=== PATIENT | female | born 1995 | race Caucasian/White ===

== ENCOUNTER 2018-03-22 19:06 | Emergency (ER) | payer MEDICAID, SELFPAY ==
[2018-03-22 19:07] VITALS: BP 102/76; PULSE 123; RESP 18; TEMP 37.1; O2SAT 98; BMI 21.1
[2018-03-22 19:26] LABS: Mucous, Urine 0 SEEN /hpf (<or=2+); Red Blood Cells-Urine 0 SEEN /hpf (0-5)
[2018-03-22 19:53] LABS: Color, Urine Yellow (Yellow); Glucose, Dipstick Normal (Normal); Ketone-Dipstick Negative (Negative); Leukocyte Esterase-Dipstick Negative /ul (Negative); Nitrite-Dipstick Negative (Negative); Occult Blood-Urine 50 /ul (Negative); Protein-Dipstick Negative (Negative); Urine Bilirubin Dipstick Negative (Negative); Urine Clarity Sl. Cloudy (Clear); Urine Urobilinogen Normal (Normal)
[2018-03-22 20:11] LABS: Bacteria 1+ /hpf (None Seen); Squamous Epithelial Cells - UA 0-5 SEEN /hpf (5-10); White Blood Cells 0-5 SEEN /hpf (0-5)
--- NOTE | 2018-03-22 20:34 | ED.DCSUM_ITS ---
- ER Visit Summary Date of Service: 03/22/18 Chief Complaint: Odor and frequency History of Present Illness: The patient is a 22 F who presents with concern for urinary tract infection. States her urine had odor and she had frequency. She complains of discomfort in suprapubic area. Denies low back pain or flank pain. Denies fever, chills or night sweats. Denies nausea or vomiting. She states her last eye tract infection was 1 year ago. She denies vaginal discharge. She is presently on her menses. Physical Examination: Vital signs noted and remarkable heart rate 123 otherwise unremarkable. HEENT exam is unremarkable. Lungs are clear auscultation. Heart is regular. Abdomen is markable for intensity of her pubic area. Is no CVA tenderness noted. Test Results: UA reveals blood and 0-5 WBCs no RBCs and 1+ bacteria. This is not classic for urinary tract infection but in light of her symptoms and frequency will treat with 3-day course of Macrobid. Emergency Department Course and Treatment: Assess UA. Treat for cystitis with Macrobid and Pyridium for 3 days Treatment Plan: Macrobid and Pyridium Disposition: Discharge to home Impression: Acute cystitis nonhemorrhagic This note was generated with [employer] dictation software. It may contain incorrect words, spelling, and punctuation that were not noted in review of the chart jill or to signing ED Disposition - Plan for ED Patient: Disposition: Home or Assisted Living Chief Complaint: Complaint Instructions: ED UTI Cystitis Female Prescriptions: Nitrofurantoin Macrocrystals [Macrobid] 100 mg PO Q12 #10 capsule Phenazopyridine HCl [Pyridium] 200 mg PO TID #10 tablet Referrals: Butch Philip MD [Primary Care Provider] - 3-5 Days if not improving
[2018-03-22 20:38] VITALS: RESP 18
== END 2018-03-22 20:40 | disposition home or self-care (01) ==
PROVIDERS: Emergency Provider Emergency Medicine; Family Provider Family Medicine; PCP Family Medicine
DX: N30.00 Acute cystitis without hematuria (principal); Z72.0 Tobacco use; Z79.899 Other long term (current) drug therapy; Z87.440 Personal history of urinary (tract) infections
CPT/HCPCS: 81001; 99282

== ENCOUNTER 2018-03-30 23:27 | Emergency (ER) | payer MEDICAID, SELFPAY ==
[2018-03-30 23:29] VITALS: BP 121/85; PULSE 112; RESP 16; TEMP 37.2; O2SAT 98; BMI 21.1
--- NOTE | 2018-03-30 23:43 | ED.DCSUM_ITS ---
- ER Visit Summary Date of Service: 03/30/18 Chief Complaint: Fentanyl overdose History of Present Illness: The patient is a 22 F who presents for opiate overdose. Patient states she snorted a line of fentanyl. She was found unresponsive and not breathing. EMS assisted ventilations and gave her one half a milligram of Narcan. She had full return to consciousness and spontaneous breathing. Patient states she has injected in the past but denies it recently. She is denying any chest pain, shortness of breath, or other complaints at this time other than some nausea. Patient is not interested at this time in detox resources. She has used meth as well. Denies any medical problems. Physical Examination: Vital signs: afebrile, hemodynamically stable, no hypoxia on room air General: well nourished, well developed, in no distress Skin: warm, dry, no rash, pale HEENT: normocephalic and atraumatic; PERRL, EOMI, moist mucous membranes Cardiovascular: Tachycardic rate and rhythm without murmurs, no peripheral edema, 2+ pulses all distal extremities Respiratory: No increased work of breathing, lungs are clear to auscultation bilaterally, no rales, rhonchi or wheezing Abdominal: Abdomen is soft, nontender with normoactive bowel sounds, no guarding or rebound, no masses MSK: Moves all extremities, no deformities, normal strength Neuro: Awake and alert, oriented ?4. No facial droop, sensation and motor function intact and symmetric Test Results: [] Emergency Department Course and Treatment: Patient was observed for greater than 1 hour and had no shortness of breath, cough or other concerning symptoms that would be a concern for flash pulmonary edema. Patient had no respiratory depression or altered mental status that would be concerning for relapse of her opiate overdose. Patient had been offered and declined resources for substance abuse detox. Patient was discharged home well-appearing with a ride. Treatment Plan: [] Disposition: [] Impression: Opiate overdose This note was generated with [employer] dictation software. It may contain incorrect words, spelling, and punctuation that were not noted in review of the chart jill or to signing ED Disposition - Plan for ED Patient: Chief Complaint: Overdose Referrals: Butch Philip MD [Primary Care Provider] -
[2018-03-31 00:27] VITALS: BP 108/79; PULSE 110; RESP 20; O2SAT 100
--- NOTE | 2018-03-31 00:27 | ED.DEP ---
ED Disposition - Plan for ED Patient: Disposition: Home or Assisted Living Chief Complaint: Overdose Instructions: ED Overdose Opiate Referrals: Butch Philip MD [Primary Care Provider] - 1-2 Days if not improving Additional Instructions: Please seek help for substance use, as next time you overdose you could . Do not do drugs. If you have any worsening of your condition or any new concerning symptoms, please return immediately to the emergency department for another evaluation.
[2018-03-31 00:37] VITALS: BP 125/85; PULSE 113; RESP 20; O2SAT 100
--- OUTSIDE RECORDS SUMMARY | 2018-05-16 23:07 | XMS RPT_ITS ---
:1995 Author Organization [facility] Care Team Providers Name Role Phone LU PHILIP) Attending Unavailable LU PHILIP) Attending Unavailable LU PHILIP) Referring Unavailable LU PHILIP) Attending Unavailable Butch Philip Primary Care Unavailable Chana Borden Attending Unavailable Davi Horn Attending Unavailable Butch Philip Primary Care Unavailable PROBLEMS PROBLEMS DATE TYPE CONDITION / CODE ATTENDING STATUS SOURCE 06/04/2017 Active Anxiety disorder, NA Active [place] unspecified / [facility] F41.9(ICD-10) [place] Repository 12/29/2017 Active Other psychoactive NA Active [place] substance use, [facility] unspecified, [place] uncomplicated / Repository F19.90(ICD-10) 12/29/2017 Active Major depressive NA Active [place] disorder, recurrent [facility] severe without [place] psychotic features Repository / F33.2(ICD-10) 12/29/2017 Active Personal history of NA Active [place] other specified [facility] conditions / [place] Z87.898(ICD-10) Repository 06/04/2017 Active Unknown / Elvia PHILIP UNK(Unknown) [facility] () [place] Repository PROCEDURES PROCEDURES No Procedure Records FoundRESULTS RESULTS EMERGENCY DEPARTMENT Observed: 03/31/2018 Status: F Source: [place] SUMMARY 12:36 AM [facility] REPOSITORY [facility] Medical Records Department [address] [place] [address] Emergency Department Summary 03/30/18 2342 MR#: [id number] Acct: [id number] Name: ABI ALANIS Rep #: [id number] : 1995 22 From: Chana Borden MD PCP: Butch Philip MD Status: REG ER - ER Visit Summary Date of Service: 03/30/18 Chief Complaint: Fentanyl overdose History of Present Illness: The patient is a 22 F who presents for opiate overdose. Patient states she snorted a line of fentanyl. She was found unresponsive and not breathing. EMS assisted ventilations and gave her one half a milligram of Narcan. She had full return to consciousness and spontaneous breathing. Patient states she has injected in the past but denies it recently. She is denying any chest pain, shortness of breath, or other complaints at this time other than some nausea. Patient is not interested at this time in detox resources. She has used meth as well. Denies any medical problems. Physical Examination: Vital signs: afebrile, hemodynamically stable, no hypoxia on room air General: well nourished, well developed, in no distress Skin: warm, dry, no rash, pale HEENT: normocephalic and atraumatic; PERRL, EOMI, moist mucous membranes Cardiovascular: Tachycardic rate and rhythm without murmurs, no peripheral edema, 2+ pulses all distal extremities Respiratory: No increased work of breathing, lungs are clear to auscultation bilaterally, no rales, rhonchi or wheezing Abdominal: Abdomen is soft, nontender with normoactive bowel sounds, no guarding or rebound, no masses MSK: Moves all extremities, no deformities, normal strength Neuro: Awake and alert, oriented 4. No facial droop, sensation and motor function intact and symmetric Test Results: [] Emergency Department Course and Treatment: Patient was observed for greater than 1 hour and had no shortness of breath, cough or other concerning symptoms that would be a concern for flash pulmonary edema. Patient had no respiratory depression or altered mental status that would be concerning for relapse of her opiate overdose. Patient had been offered and declined resources for substance abuse detox. Patient was discharged home well- appearing with a ride. Treatment Plan: [] Disposition: [] Impression: Opiate overdose This note was generated with [employer] dictation software. It may contain incorrect words, spelling, and punctuation that were not noted in review of the chart prior to signing ED Disposition - Plan for ED Patient: Chief Complaint: Overdose Referrals: Butch Philip MD [Primary Care Provider] - What to do if you have Problems For any increased pain, shortness of breath, bleeding, nausea or vomiting, chest pain, or any unexpected problems, contact your Primary Care Provider. Call [facility] ([phone]) or report to the closest Emergency Room. Call 911 if necessary. 03/31/1835 <Electronically signed by Chana Borden MD> Date Chana Borden MD Cosigner Signature (If Indicated): Date CC: Butch Philip MD DISCHARGE INSTRUCTION Observed: 03/31/2018 Status: F Source: [place] 12:31 AM [facility] REPOSITORY [facility] Medical Records Department [address] [place] [address] Discharge Instruction 03/31/1826 MR#: [id number] Acct: [id number] Name: ABI ALANIS Rep #: [id number] : 1995 22 From: Chana Borden MD PCP: Butch Philip MD Status: REG ER ED Disposition - Plan for ED Patient: Disposition: Home or Assisted Living Chief Complaint: Overdose Instructions: ED Overdose Opiate Referrals: Butch Philip MD [Primary Care Provider] - 1-2 Days if not improving Additional Instructions: Please seek help for substance use, as next time you overdose you could . Do not do drugs. If you have any worsening of your condition or any new concerning symptoms, please return immediately to the emergency department for another evaluation. What to do if you have Problems For any increased pain, shortness of breath, bleeding, nausea or vomiting, chest pain, or any unexpected problems, contact your Primary Care Provider. Call [facility] ([phone]) or report to the closest Emergency Room. Call 911 if necessary. 03/31/1830 <Electronically signed by Chana Borden MD> Date Chana Borden MD Cosigner Signature (If Indicated): Date CC: Butch Philip MD EMERGENCY DEPARTMENT Observed: 03/22/2018 Status: F Source: [place] SUMMARY 8:34 PM [facility] REPOSITORY [facility] Medical Records Department [address] [place] [address] Emergency Department Summary 03/22/182030 MR#: [id number] Acct: [id number] Name: ABI ALANIS Rep #: [id number] : 1995 22 From: Davi Horn MD PCP: Butch Philip MD Status: REG ER - ER Visit Summary Date of Service: 03/22/18 Chief Complaint: Odor and frequency History of Present Illness: The patient is a 22 F who presents with concern for urinary tract infection. States her urine had odor and she had frequency. She complains of discomfort in suprapubic area. Denies low back pain or flank pain. Denies fever, chills or night sweats. Denies nausea or vomiting. She states her last eye tract infection was 1 year ago. She denies vaginal discharge. She is presently on her menses. Physical Examination: Vital signs noted and remarkable heart rate 123 otherwise unremarkable. HEENT exam is unremarkable. Lungs are clear auscultation. Heart is regular. Abdomen is markable for intensity of her pubic area. Is no CVA tenderness noted. Test Results: UA reveals blood and 0-5 WBCs no RBCs and 1+ bacteria. This is not classic for urinary tract infection but in light of her symptoms and frequency will treat with 3-day course of Macrobid. Emergency Department Course and Treatment: Assess UA. Treat for cystitis with Macrobid and Pyridium for 3 days Treatment Plan: Macrobid and Pyridium Disposition: Discharge to home Impression: Acute cystitis nonhemorrhagic This note was generated with [employer] dictation software. It may contain incorrect words, spelling, and punctuation that were not noted in review of the chart prior to signing ED Disposition - Plan for ED Patient: Disposition: Home or Assisted Living Chief Complaint: Complaint Instructions: ED UTI Cystitis Female Prescriptions: Nitrofurantoin Macrocrystals [Macrobid] 100 mg PO Q12 #10 capsule Phenazopyridine HCl [Pyridium] 200 mg PO TID #10 tablet Referrals: Butch Philip MD [Primary Care Provider] - 3-5 Days if not improving What to do if you have Problems For any increased pain, shortness of breath, bleeding, nausea or vomiting, chest pain, or any unexpected problems, contact your Primary Care Provider. Call [facility] ([phone]) or report to the closest Emergency Room. Call 911 if necessary. 03/22/182033 <Electronically signed by Davi Horn MD> Date Davi Horn MD Cosigner Signature (If Indicated): Date CC: Butch Philip MD URINALYSIS, COMPLETE Collected: 03/22/2018 Status: F Source: LOU 7:15 PM [facility] REPOSITORY Order Comment: How was Urine Obtained? DIRECTOR OF THERAPY SERVICES TO SPECIFY TYPE CODE TESTS RESULT OUT OF RANGE REFERENCE UNITS LAB L400.3000 Yellow COLOR Normal Yellow LAB L400.3050 Clear Normal CLARITY Sl. Cloudy LAB L400.3200 Normal mg/dl Normal GLUCOSE, UR Normal LAB L400.3300 Negative mg/dL Normal BILIRUBIN URINE Negative LAB L400.3400 Negative mg/dl Normal KETONE UR Negative LAB L400.3465 1.002-1.030 Normal SP.GR. DIPSTX 1.010 LAB L400.3550 5.0 - 8.0 pH UR Normal 7.0 LAB L400.3600 Negative mg/dl PROT Normal DIPSTX Negative LAB L400.3700 Normal mg/dl Normal UROBILI Normal LAB L400.3750 Negative Normal NITRITE UR Negative LAB L400.3780 Negative /ul High 50 OCCULT BLOOD-UR LAB L400.3800 Negative /ul LEUK Normal ESTERASE Negative LAB L400.4050 0-5 /hpf WBC Normal 0-5 SEEN LAB L400.4100 0-5 /hpf 0 Normal RBC-UA SEEN LAB L400.4150 5-10 /hpf SQUAM Normal EPI 0-5 SEEN LAB L400.4300 None Seen /hpf 1+ Normal BACTERIA LAB L400.4350 <or=2+ /hpf 0 Normal MUCUS, URINE SEEN Performed By: #### L400.0001 #### [facility] Laboratory [address] [place], [place], [id number] PROGRESS Observed: 02/03/2018 Status: COMPLETED Source: [place] 11:53 AM [facility] REPOSITORY HNO ID: [id number] Author: Lu España) [place] Service: (none) Author Type: Physician Type: Progress Notes Filed: 02/03/2018 1:07 PM Note Text: Chief Complaint Patient presents with: 6 week follow up: asking for rx for ibuprofen for teeth - staying at [facility] Abi Alanis is a 22 year old female who presents here today for Above Complaints. Patient taking Celexa and Buspar as prescribed and feels that both anxiety and depression. Denies suicidal ideations or panic attacks. Denies side effects. Does not require refills today. Would like to remain on same dosage. Still living at [facility] for recovery from heroin use. Doing well. Attending group therapy sessions. Has not used in the last 62 days. Has appointment tomorrow with Dr. Calderon to discuss Vivitrol shots. 30 days left at [facility]. Still smoking 1/2 pack per day and was unable to afford the patches OTC. Requesting rx for chantix instead, has not tried before. Requesting ibuprofen for chronic tooth pain 2/2 gingivitis and dental caries. Had right side of her mouth filled at dentist appointment before she went back to half-way. Has appointment with dentist next month. Needs rx because she cannot get medications OTC while in [facility]. Past medical history, appointments, medications, allergies reviewed. Previous Medical History PAST MEDICAL HISTORY Diagnosis Date - Anxiety - Chlamydia 2013 - depression - Heroin abuse (HCC) IV history, last use was March of 2017, seeing Dr. Calderon for suboxone - Rh negative status during 07/05/2014 - Tobacco use Previous Surgical History PAST SURGICAL HISTORY Procedure Laterality Date - [facility] (MISSED AB 1ST TRIMESTER) 04/27/12 missed ab at 12 weeks. baby measuring 8 weeks Family History FAMILY HISTORY Problem Relation Age of Onset - Breast Cancer Mother 46 - other (depression) Mother - Breast Cancer Maternal Grandmother Patient Allergies ALLERGIES No Known Allergies Current Medications Current Outpatient Prescriptions on File Prior to Visit: citalopram hydrobromide (CELEXA) 10 mg tablet Take 1 tablet by mouth once daily. busPIRone (BUSPAR) 10 mg tablet Take 1 tablet by mouth three times daily. levonorgestrel (MIRENA) 20 mcg/24 hr (5 years) IUD 1 Each by INTRAUTERINE route as directed. nicotine (NICODERM) 14 mg/24 hr Apply 1 Patch as directed every 24 hours. No smoking with patch. (Patient not taking: Reported on 02/03/2018 ) nicotine (NICODERM) 7 mg/24 hr Apply 1 Patch as directed every 24 hours. (Patient not taking: Reported on 02/03/2018 ) No current facility-administered medications on file prior to visit. Social History Social History Marital status: Single Spouse name: Years of education: 11 Number of children: Occupational History Occupation Employer Comment unemployed Social History Main Topics Smoking status: Current Every Day Smoker Packs/day: 0.50 Years: 4.00 Types: Cigarettes Smokeless tobacco: Never Used Alcohol use: No Drug use: Yes Comment: heroin abuse in past Sexual activity: Not Currently Partners with: Male control/protection: IUD Review of Symptoms REVIEW OF SYSTEMS GENERAL: No weight loss, malaise or fevers RESPIRATORY: Negative for cough, hemoptysis, wheezing, COPD, dyspnea or shortness of breath CARDIOVASCULAR: Negative for chest pain, leg swelling, hypertension, CHF or palpitations GI: No nausea, vomiting, or diarrhea SKIN: Negative for lesions, rash, and itching EXAM: BP 110/78 Pulse 100 Resp 12 Wt 56.7 kg (125 lb) BMI 23.24 kg/m? General Appearance: Well appearing, alert, in no acute distress, well-hydrated, well nourished.. Skin: Skin color, texture, turgor normal, no suspicious rashes or lesions. Oropharynx: Positive findings: gingivitis, dental caries. Lungs: Lungs clear to auscultation. No wheezing, rhonchi, rales. Heart: RRR without murmur, gallop, or rubs. No ectopy. Abdomen: Normal abdominal exam, Abdomen soft, non-tender. Bowel sounds normal. No masses, organomegaly. Extremities: No deformities, edema, skin discoloration, clubbing or cyanosis. Good capillary refill. . Health Maintenance List HPV VACCINE(2 - Female 3-dose series) due on 07/30/2017 PAP EVERY 3 YEARS (21-30 YEAR OLDS) due on 11/24/2018 DTAP,TDAP,TD(2 - Td) due on 01/29/2026 ONE PNEUMOVAX PRIOR TO AGE 65 Completed INFLUENZA Completed Data reviewed Component Latest Ref Rng AND Units 12/29/2017 Protein, Total 6.3 - 8.0 g/dL 8.2 (H) Albumin 3.9 - 4.9 g/dL 5.0 (H) Calcium 8.5 - 10.2 mg/dL 10.0 Bilirubin, Total 0.2 - 1.3 mg/dL 0.3 Alkaline Phosphatase 32 - 117 U/L 82 AST 13 - 35 U/L 25 Glucose 74 - 99 mg/dL 81 BUN 7 - 21 mg/dL 16 Creatinine 0.58 - 0.96 mg/dL 0.62 Sodium 136 - 144 mmol/L 142 Potassium 3.7 - 5.1 mmol/L 4.6 Chloride 97 - 105 mmol/L 106 (H) CO2 22 - 30 mmol/L 20 (L) Anion Gap 9 - 18 mmol/L 16 ALT 7 - 38 U/L 23 eGFR- >60 eGFR-All Other Races . >60 WBC 3.70 - 11.00 k/uL 11.14 (H) RBC 3.90 - 5.20 m/uL 4.90 Hemoglobin 11.5 - 15.5 g/dL 15.9 (H) Hematocrit 36.0 - 46.0 % 46.1 (H) MCV 80.0 - 100.0 fL 94.1 MCH 26.0 - 34.0 pG 32.4 MCHC 30.5 - 36.0 g/dL 34.5 RDW-CV 11.5 - 15.0 % 11.9 Platelet Count 150 - 400 k/uL 256 MPV 9.0 - 12.7 fL 12.5 Absolute nRBC <0.01 k/uL <0.01 Phencyclidine Negative Negative Benzodiazepines Urine Negative Negative Cocaine Urine Negative Negative Amphetamines Negative Negative Cannabinoids, Urine Negative Negative Opiates Negative Negative Barbiturates Negative Negative Ethanol, Urine <11 mg/dL <11 Oxycodone, Urine Negative Negative Hep B Core Ab, Total Negative Negative Hep C Antibody IA Negative Negative Hep B Surface Ag Negative Negative Hep B Surface Ab, Qual Negative Negative HIV 12 Combo (Ag/Ab) Non Reactive Non Reactive TSH 0.400 - 5.500 uU/mL 0.899 ASSESSMENT/PLAN: 1. Anxiety - ICD9: 300.00, ICD10: F41.9 (primary diagnosis) Improved on buspar and Celexa. Continue current regimen. Recheck in 3 months. 2. depression - ICD9: 300.9, ICD10: F99 Controlled on Celexa. 3. Heroin abuse (HCC) - ICD9: 305.50, ICD10: F11.10 Sober for 62 days. Continue with [facility] and [facility]. Recheck in 3 months. 4. Tobacco use - ICD9: 305.1, ICD10: Z72.0 - Cessation encouraged. - Physiologic and physical aspects of tobacco addiction as well as strategies for quitting were discussed. - Counseling was given focusing on the harmful effects of this addiction especially given the patient's medical condition(s) which will be worsened because of the chemicals in tobacco. - Prescription for Chantix given - VARENICLINE 0.5 MG (11)-1 MG (42) TABLETS IN A DOSE PACK - VARENICLINE 1 MG TABLET 5. Tooth pain - ICD9: 525.9, ICD10: K08.89 Ibuprofen PRN. Keep appointment with dentist as scheduled. - IBUPROFEN 200 MG TABLET 6. Poor dentition - ICD9: 525.9, ICD10: K08.9 See above. - IBUPROFEN 200 MG TABLET Lu Philip MD CNOV Observed: 02/03/2018 Status: COMPLETED Source: [place] 11:40 AM [facility] RE[facility] ABI ALANIS ([id number]) 1995 F CPA Date Time Provider Department 02/03/18 11:40 AM LU PHILIP) [facility] During your visit today, we recorded the following information about you: Pulse Respiration Blood pressure Weight 100/minute 12/minute 110/78 56.7 kg Lu Philip MD 02/03/2018 1:07 PM Signed Chief Complaint Patient presents with: 6 week follow up: asking for rx for ibuprofen for teeth - staying at [facility] Abi Alanis is a 22 year old female who presents here today for Above Complaints. Patient taking Celexa and Buspar as prescribed and feels that both anxiety and depression. Denies suicidal ideations or panic attacks. Denies side effects. Does not require refills today. Would like to remain on same dosage. Still living at [facility] for recovery from heroin use. Doing well. Attending group therapy sessions. Has not used in the last 62 days. Has appointment tomorrow with Dr. Calderon to discuss Vivitrol shots. 30 days left at [facility]. Still smoking 1/2 pack per day and was unable to afford the patches OTC. Requesting rx for chantix instead, has not tried before. Requesting ibuprofen for chronic tooth pain 2/2 gingivitis and dental caries. Had right side of her mouth filled at dentist appointment before she went back to [facility]way. Has appointment with dentist next month. Needs rx because she cannot get medications OTC while in [facility]. Past medical history, appointments, medications, allergies reviewed. Previous Medical History PAST MEDICAL HISTORY Diagnosis Date - Anxiety - Chlamydia 2013 - depression - Heroin abuse (HCC) IV history, last use was March of 2017, seeing Dr. Calderon for suboxone - Rh negative status during 07/05/2014 - Tobacco use Previous Surgical History PAST SURGICAL HISTORY Procedure Laterality Date - [facility] (MISSED AB 1ST TRIMESTER) 04/27/12 missed ab at 12 weeks. baby measuring 8 weeks Family History FAMILY HISTORY Problem Relation Age of Onset - Breast Cancer Mother 46 - other (depression) Mother - Breast Cancer Maternal Grandmother Patient Allergies ALLERGIES No Known Allergies Current Medications Current Outpatient Prescriptions on File Prior to Visit: citalopram hydrobromide (CELEXA) 10 mg tablet Take 1 tablet by mouth once daily. busPIRone (BUSPAR) 10 mg tablet Take 1 tablet by mouth three times daily. levonorgestrel (MIRENA) 20 mcg/24 hr (5 years) IUD 1 Each by INTRAUTERINE route as directed. nicotine (NICODERM) 14 mg/24 hr Apply 1 Patch as directed every 24 hours. No smoking with patch. (Patient not taking: Reported on 02/03/2018 ) nicotine (NICODERM) 7 mg/24 hr Apply 1 Patch as directed every 24 hours. (Patient not taking: Reported on 02/03/2018 ) No current facility-administered medications on file prior to visit. Social History Social History Marital status: Single Spouse name: Years of education: 11 Number of children: Occupational History Occupation Employer Comment unemployed Social History Main Topics Smoking status: Current Every Day Smoker Packs/day: 0.50 Years: 4.00 Types: Cigarettes Smokeless tobacco: Never Used Alcohol use: No Drug use: Yes Comment: heroin abuse in past Sexual activity: Not Currently Partners with: Male control/protection: IUD Review of Symptoms REVIEW OF SYSTEMS GENERAL: No weight loss, malaise or fevers RESPIRATORY: Negative for cough, hemoptysis, wheezing, COPD, dyspnea or shortness of breath CARDIOVASCULAR: Negative for chest pain, leg swelling, hypertension, CHF or palpitations GI: No nausea, vomiting, or diarrhea SKIN: Negative for lesions, rash, and itching EXAM: BP 110/78 Pulse 100 Resp 12 Wt 56.7 kg (125 lb) BMI 23.24 kg/m? General Appearance: Well appearing, alert, in no acute distress, well-hydrated, well nourished.. Skin: Skin color, texture, turgor normal, no suspicious rashes or lesions. Oropharynx: Positive findings: gingivitis, dental caries. Lungs: Lungs clear to auscultation. No wheezing, rhonchi, rales. Heart: RRR without murmur, gallop, or rubs. No ectopy. Abdomen: Normal abdominal exam, Abdomen soft, non-tender. Bowel sounds normal. No masses, organomegaly. Extremities: No deformities, edema, skin discoloration, clubbing or cyanosis. Good capillary refill. . Health Maintenance List HPV VACCINE(2 - Female 3-dose series) due on 07/30/2017 PAP EVERY 3 YEARS (21-30 YEAR OLDS) due on 11/24/2018 DTAP,TDAP,TD(2 - Td) due on 01/29/2026 ONE PNEUMOVAX PRIOR TO AGE 65 Completed INFLUENZA Completed Data reviewed Component Latest Ref Rng AND Units 12/29/2017 Protein, Total 6.3 - 8.0 g/dL 8.2 (H) Albumin 3.9 - 4.9 g/dL 5.0 (H) Calcium 8.5 - 10.2 mg/dL 10.0 Bilirubin, Total 0.2 - 1.3 mg/dL 0.3 Alkaline Phosphatase 32 - 117 U/L 82 AST 13 - 35 U/L 25 Glucose 74 - 99 mg/dL 81 BUN 7 - 21 mg/dL 16 Creatinine 0.58 - 0.96 mg/dL 0.62 Sodium 136 - 144 mmol/L 142 Potassium 3.7 - 5.1 mmol/L 4.6 Chloride 97 - 105 mmol/L 106 (H) CO2 22 - 30 mmol/L 20 (L) Anion Gap 9 - 18 mmol/L 16 ALT 7 - 38 U/L 23 eGFR- >60 eGFR-All Other Races . >60 WBC 3.70 - 11.00 k/uL 11.14 (H) RBC 3.90 - 5.20 m/uL 4.90 Hemoglobin 11.5 - 15.5 g/dL 15.9 (H) Hematocrit 36.0 - 46.0 % 46.1 (H) MCV 80.0 - 100.0 fL 94.1 MCH 26.0 - 34.0 pG 32.4 MCHC 30.5 - 36.0 g/dL 34.5 RDW-CV 11.5 - 15.0 % 11.9 Platelet Count 150 - 400 k/uL 256 MPV 9.0 - 12.7 fL 12.5 Absolute nRBC <0.01 k/uL <0.01 Phencyclidine Negative Negative Benzodiazepines Urine Negative Negative Cocaine Urine Negative Negative Amphetamines Negative Negative Cannabinoids, Urine Negative Negative Opiates Negative Negative Barbiturates Negative Negative Ethanol, Urine <11 mg/dL <11 Oxycodone, Urine Negative Negative Hep B Core Ab, Total Negative Negative Hep C Antibody IA Negative Negative Hep B Surface Ag Negative Negative Hep B Surface Ab, Qual Negative Negative HIV 12 Combo (Ag/Ab) Non Reactive Non Reactive TSH 0.400 - 5.500 uU/mL 0.899 ASSESSMENT/PLAN: 1. Anxiety - ICD9: 300.00, ICD10: F41.9 (primary diagnosis) Improved on buspar and Celexa. Continue current regimen. Recheck in 3 months. 2. depression - ICD9: 300.9, ICD10: F99 Controlled on Celexa. 3. Heroin abuse (HCC) - ICD9: 305.50, ICD10: F11.10 Sober for 62 days. Continue with [facility] and [facility]. Recheck in 3 months. 4. Tobacco use - ICD9: 305.1, ICD10: Z72.0 - Cessation encouraged. - Physiologic and physical aspects of tobacco addiction as well as strategies for quitting were discussed. - Counseling was given focusing on the harmful effects of this addiction especially given the patient's medical condition(s) which will be worsened because of the chemicals in tobacco. - Prescription for Chantix given - VARENICLINE 0.5 MG (11)-1 MG (42) TABLETS IN A DOSE PACK - VARENICLINE 1 MG TABLET 5. Tooth pain - ICD9: 525.9, ICD10: K08.89 Ibuprofen PRN. Keep appointment with dentist as scheduled. - IBUPROFEN 200 MG TABLET 6. Poor dentition - ICD9: 525.9, ICD10: K08.9 See above. - IBUPROFEN 200 MG TABLET Lu Philip MD Referring Provider: SELF [200] Allergies As of Date: 02/03/2018 (No Known Allergies) Date Reviewed: 02/03/2018 Reviewed by: Rajiv Correa Ma - Fully Assessed Reason for Visit: 6 week follow up [Other] Cmt: asking for rx for ibuprofen for teeth - staying at [facility] Primary Visit Diagnosis:Anxiety [F41.9] Other Visit Diagnoses:depression [F99] Heroin abuse (HCC) [F11.10] Tobacco use [Z72.0] Tooth pain [K08.89] Poor dentition [K08.9] Order(s):ibuprofen (MOTRIN) 200 mg tabletTake 1-2 tablets by mouth every 6 hours as needed for Pain (Take with food.).Disp: 60 tabletRfl: 1 varenicline (CHANTIX STARTING MONTH BOX) 0.5 mg (11)- 1 mg (42) tabletTake 1 tablet (0.5 mg) by mouth once daily for 3 days, then 1 tablet (0.5 mg) twice daily for 4 days, then one tablet (1 mg) twice daily.Disp: 53 tabletRfl: 0 varenicline (CHANTIX CONTINUING MONTH BOX) 1 mg tabletTake 1 tablet by mouth twice daily.Disp: 60 tabletRfl: 1 Prescriptions as of 02/03/2018 Sig: CITALOPRAM 10 MG TABLET Take 1 tablet by mouth once d* BUSPIRONE 10 MG TABLET Take 1 tablet by mouth three * LEVONORGESTREL 20 MCG/24 HR (* 1 Each by INTRAUTERINE route * IBUPROFEN 200 MG TABLET Take 1-2 tablets by mouth jeremy* VARENICLINE 0.5 MG (11)-1 MG * Take 1 tablet (0.5 mg) by osman* VARENICLINE 1 MG TABLET Take 1 tablet by mouth twice * Problem List As Of Date 02/03/2018 Noted Resolved Twin gestation, dichorionic diamniotic [O30.049]INVALID FOR*12/10/2014 More... Tobacco use in [O99.330] INVALID FOR*12/10/2014 Not immune to rubella [Z78.9] INVALID FOR*12/10/2014 Rh negative status during [O09.899, Z*INVALID FOR*12/10/2014 IUGR (intrauterine growth restriction) [BTB1491]INVALID FOR*12/10/2014 More... complicated by Suboxone maintenance, *INVALID FOR*06/26/2016 More... Rh negative state in antepartum period [O09.899]INVALID FOR*06/26/2016 More... Tobacco use in [O99.330] INVALID FOR*06/26/2016 More... History of depression [Z86.59] INVALID FOR*06/26/2016 More... UTI (urinary tract infection) in , ant*INVALID FOR*06/26/2016 More... Heroin abuse [F11.10] 06/26/2016 Anxiety [F41.9] depression [F99] Heroin abuse (HCC) [F11.10] More... Tobacco use [Z72.0] Prescriptions ordered this encounter Disp Refills Start End IBUPROFEN 200 MG TABLET 60 t* 1 02/03/2018 Route: ORAL Sig: Take 1-2 tablets by mouth every 6 hours as needed for Pain (Take with food.). VARENICLINE 0.5 MG (11)-1 MG (42) TA* 53 t* 0 02/03/2018 Sig: Take 1 tablet (0.5 mg) by mouth once daily for 3 days, then 1 tablet (0.5 mg) twice daily for 4 days, then one tablet (1 mg) twice daily. VARENICLINE 1 MG TABLET 60 t* 1 02/03/2018 Route: ORAL Sig: Take 1 tablet by mouth twice daily. Medications Discontinued During This Encounter nicotine (NICODERM) 14 mg/24 hr 30 P* 0 12/29/2017 02/03/2018 Route: TRANSDERMAL Sig: Apply 1 Patch as directed every 24 hours. No smoking with patch. Patient not taking: Reported on 02/03/2018 Disc: Reason for discontinue is not on file. nicotine (NICODERM) 7 mg/24 hr 30 P* 0 12/29/2017 02/03/2018 Route: TRANSDERMAL Sig: Apply 1 Patch as directed every 24 hours. Patient not taking: Reported on 02/03/2018 Disc: Reason for discontinue is not on file. Disposition: Return in about 3 months (around 05/06/2018). Follow-up and Disposition History Recorded Encounter Status:Closed by LU PHILIP MD on 02/03/18 TOXICOLOGY SCREEN,UR Collected: 12/29/2017 Status: F Source: [place] [facility] REPOSITORY TYPE CODE TESTS RESULT OUT OF REFERENCE UNITS RANGE LAB UPCP2 Negative Negative Phencyclidin e, Urine Result Comment: Cutoff threshold at 25 ng/mL. LAB UBENZ2 Negative Benzodiazepines, Ur Negative Result Comment: Cutoff threshold at 200 ng/mL. LAB UCOC2 Negative Cocaine, Negative Urine Result Comment: Cutoff threshold at 300 ng/mL. LAB UAMPH2 Negative Amphetamines, Urine Negative Result Comment: Cutoff threshold at 1000 ng/mL. LAB UTHC2 Negative Cannabinoids, Urine Negative Result Comment: Cutoff threshold at 50 ng/mL. LAB UOPI2 Negative Opiates, Negative Urine Result Comment: Cutoff threshold at 300 ng/mL. LAB UBARB2 Negative Barbiturates, Urine Negative Result Comment: Cutoff threshold at 200 ng/mL. LAB UETOH <11 mg/dL <11 Ethanol, Urine LAB UOXYC Negative Oxycodone, Negative Urine Result Comment: Cutoff threshold at 100 ng/mL. Comment: Immunoassay screen only. Cross reactivity with other substances can occur with immunoassay screening. Detection of any drug(s) in this urine toxicology panel is presumptive only. These tests are for med ical purposes only and should not be used for compliance monitoring, legal, or forensic use. Samples should be within normal physiological conditions (e.g. pH). This assay does not include adulteration/specimen validity testing. In clinical settings, confirmatory testing is at the practitioner's discretion [1]. If clinically indicated, confirmation by high specificity, quantitative methodology, which includes adulteration/spec imen validity testing, may be requested on the same specimen through Client Services ([phone]) if contacted within 48 hours of initial testing. [1]Substance Abuse and Mental Health Services Administration (2012). Clinical Drug Testing in Primary Care Technical Assistance Publication Series 32. Department of Health and Human Services, [place], p.10. These tests were developed and their performance characteristics determined by [facility] ([facility]). They have not been cleared or a pproved by the FDA. [facility] is regulated under CLIA as qualified to perform high complexity testing. These tests are used for clinical purposes. They should not be regarded as investigational or for research. Performed By: #### UTOX2 #### [facility] [address] [place], [place] [address] CBC Collected: 12/29/2017 Status: F Source: [place] 5:26 PM [facility] REPOSITORY TYPE CODE TESTS RESULT OUT OF REFERENCE UNITS RANGE LAB WBC 3.70-11.00 k/uL WBC High 11.14 LAB RBC 3.90-5.20 m/uL RBC 4.90 LAB HGB 11.5-15.5 g/dL High Hemoglobin 15.9 LAB HCT 36.0-46.0 % High Hematocrit 46.1 LAB MCV 80.0-100.0 fL MCV 94.1 LAB MCH 26.0-34.0 pG MCH 32.4 LAB MCHC 30.5-36.0 g/dL MCHC 34.5 LAB RDWCV 11.5-15.0 % RDW-CV 11.9 LAB PLTCT 150-400 k/uL Platelet Count 256 LAB MPV 9.0-12.7 fL MPV 12.5 LAB ABSNUC <0.01 k/uL Absolute nRBC <0.01 Performed By: #### CBC, HREMOP, HIV12C, CMP, TSH #### [place] [id number] [place] [address] HEPATITIS REMOTE PANEL Collected: 12/29/2017 Status: F Source: [place] 5:26 PM [facility] REPOSITORY TYPE CODE TESTS RESULT OUT OF REFERENCE UNITS RANGE LAB AHBCOT Negative Hep B Core Ab,Total Negative LAB AHCV Negative Hepatitis C Ab Negative IA LAB HBSAGR Negative HBsAg Negative LAB AHBSAG Negative HepB Surface Ab,Qual Negative Result Comment: NEGATIVE Performed By: #### CBC, HREMOP, HIV12C, CMP, TSH #### [place] [address] HIV 12 COMBO (AG/AB) Collected: 12/29/2017 Status: F Source: [place] 5:[address] [place] [address] REPOSITORY TYPE CODE TESTS RESULT OUT OF REFERENCE UNITS RANGE LAB HVAGAB Non Reactive HIV Non Reactive 12 Ag/Ab Result Comment: (NOTE) HIV Information: [place] Rev. Code 3701.243(E): This information has been disclosed to you from confidential records protected from disclosure by state law. You shall make no further disclosure of this information without the specific, written, and informed release of the individual to whom it pertains, or as otherwise permitted by state law. A general authorization for the release of medical or other information is not sufficient for the purpose of the release of HIV test results or diagnoses. Performed By: #### CBC, HREMOP, HIV12C, CMP, TSH #### [place] [id number] [place] [address] COMP METABOLIC PANEL Collected: 12/29/2017 Status: F Source: [place] 5:26 PM [facility] REPOSITORY TYPE CODE TESTS RESULT OUT OF REFERENCE UNITS RANGE LAB TP 6.3-8.0 g/dL Protein, High Total 8.2 LAB ALB 3.9-4.9 g/dL Albumin High 5.0 LAB CA 8.5-10.2 mg/dL Calcium, Total 10.0 LAB TBIL 0.2-1.3 mg/dL Bilirubin, Total 0.3 LAB ALKP 32-117 U/L Alkaline Phosphatase 82 LAB AST 13-35 U/L AST 25 LAB GLU 74-99 mg/dL Glucose 81 Result Comment: The [place] Diabetes Association (ADA) provides guidance for cutoff values for fasting glucose and random glucose. The ADA defines fasting as no caloric intake for at least 8 hours. Fas ting plasma glucose results between 100 to 125 mg/dL indicate increased risk for diabetes (prediabetes). Fasting plasma glucose results greater than or equal to 126 mg/dL meet the criteria for diagnosis of diabetes. In the absence of unequivocal hyperglycemia, results should be confirmed by repeat testing. In a patient with classic symptoms of hyperglycemia or hyperglycemic crisis, random plasma glucose results greater than or equal to 200 mg/dL meet the criteria for diagnosis of diabetes. Reference: Standards of Medical Care in Diabetes 2016, [place] Diabetes Association. Diabetes Care. 2016.39(Suppl 1). LAB BUN 7-21 mg/dL BUN 16 LAB CRET 0.58-0.96 mg/dL Creatinine 0.62 LAB NA 136-144 mmol/L Sodium 142 LAB K 3.7-5.1 mmol/L Potassium 4.6 LAB CL 97-105 mmol/L Chloride High 106 LAB CO2 22-30 mmol/L Low CO2 20 LAB AGAP 9-18 mmol/L Anion Gap 16 LAB ALT 7-38 U/L ALT 23 LAB GFRAA eGFR- Amer. >60 LAB GFRNAA . eGFR-All Other Races >60 Result Comment: eGFR (Estimated GFR) Units of measure: mL/min/1.73 meters squared eGFR is derived from the reexpressed MDRD Study equation using the following parameters: serum creatinine, age, gender and race. The creatinine assay has been calibrated to be traceable to IDMS. An eGFR <60 mL/min/1.73m2 for >3 months is consistent with chronic kidney disease. Refer to KDOQI guidelines for clinical interpretation. In patients with unstable renal function, e.g. those with acute kidney injury, the eGFR may not accurately reflect actual GFR. Performed By: #### CBC, HREMOP, HIV12C, CMP, TSH #### [facility] [address] [place], [place] [address] TSH Collected: 12/29/2017 Status: F Source: [place] 5:26 PM [facility] REPOSITORY TYPE CODE TESTS RESULT OUT OF RANGE REFERENCE UNITS LAB TSH 0.400-5.500 uU/mL TSH 0.899 Result Comment: If the patient is , TSH reference range varies by gestational period: First Trimester 0.100-2.500 uU/mL Second Trimester 0.200-3.000 uU/mL Third Trimester 0.300-3.000 uU/mL References: 1. Chance L, Young M, Edilson EK, et al. Management of Thyroid Dysfunction during and : An Endocrine Society Clinical Practice Guideline. J Clin Endocrinol Metab, 2012:97:9909-4149. 2. Sachin ADEN. Overview of thyroid disease in . UpToDate. 2016. Accessed on October 04, 2015. Performed By: #### CBC, HREMOP, HIV12C, CMP, TSH #### [facility] [address] [place], [place] [address] PROGRESS Observed: 12/29/2017 Status: COMPLETED Source: [place] 4:31 PM [facility] REPOSITORY HNO ID: [id number] Author: Lu España) [place] Service: (none) Author Type: Physician Type: Progress Notes Filed: 12/30/2017 7:54 AM Note Text: Chief Complaint Patient presents with: Medication Follow-up: asking for refills on buspar and celexa - was just release from Skilled Nursing on 12/24 and was not released with meds HPI Abi Alanis is a 22 year old female who presents here today for Above Complaints.. Patient has not been seen since May due to relapse of IV heroin and methamphetamine use while on probation, so was in skilled nursing for 90 days. Discharged on 12/24 and is staying in [facility] for inpatient treatment. Was given Celexa while in skilled nursing, but not buspar because her pharmacy did not have record of it. States that her depression symptoms have been well controlled while on the celexa, but anxiety is uncontrolled. Complains of , palpitations, fidgeting, trouble concentration, agitation/irritability, racing thoughts. Has not had panic attacks. Denies suicidal thoughts. Patient Health Questionnaire (PHQ-9), Score: 2 ?- Individual responses: 1-2-0-2-0-0-0-0-0 Score interpretation: Severe Depression Question and Answer List: 1. Not at all (0) ?- Little interest or pleasure in doing things 2. Not at all (0) ?- Feeling down, depressed, or hopeless 3. Not at all (0) ?- Trouble falling or staying asleep, or sleeping too much 4. More than half the days (2) ?- Feeling tired or having little energy 5. Not at all (0) ?- Poor appetite or overeating 6. Not at all (0) ?- Feeling bad about yourself - or that you are a failure or have let yourself or your family down 7. Not at all (0) ?- Trouble concentrating on things, such as reading the newspaper or watching television 8. Not at all (0) ?- Moving or speaking so slowly that other people could have noticed. Or the opposite - being so fidgety or restless that you have been moving around a lot more than usual 9. Not at all (0) ?- Thoughts that you would be better off , or of hurting yourself in some way 10. Not difficult at all (0) ?- If you checked off any problems in the previous 9 questions, how difficult have these problems made it for you to do your work, take care of things at home, or get along with other people? Feeling nervous, anxious, or on edge 3 Nearly every day Not being able to stop or control worrying 1 Several days Worrying too much about different things 0 Not at all sure Trouble relaxing 0 Not at all sure Being so restless that it's hard to sit still 0 Not at all sure Being easily annoyed or irritable 2 Over half the days Feeling afraid as if something awful might happen 3 Nearly every day CLAUDE-7 Anxiety Score 9 If you checked off any problems, how difficult have these problems made it for you to do your work, take care of things at home, or get along with other people? Not difficult at all Is no longer on Suboxone. Going to see Dr. Calderon in the next couple weeks to get started on Vivitrol. Denies drug use since discharge. Discussed risks of continued use. Would like help with smoking cessation, at 1/2 pack per day currently. Would like to try patches. Past medical history, appointments, medications, allergies reviewed. Previous Medical History PAST MEDICAL HISTORY Diagnosis Date - Anxiety - Chlamydia 2013 - depression - Heroin abuse (HCC) IV history, last use was March of 2017, seeing Dr. Calderon for suboxone - Rh negative status during 07/05/2014 - Tobacco use Previous Surgical History PAST SURGICAL HISTORY Procedure Laterality Date - [facility] (MISSED AB 1ST TRIMESTER) 04/27/12 missed ab at 12 weeks. baby measuring 8 weeks Family History FAMILY HISTORY Problem Relation Age of Onset - Breast Cancer Mother 46 - other (depression) Mother - Breast Cancer Maternal Grandmother Patient Allergies ALLERGIES No Known Allergies Current Medications Current Outpatient Prescriptions on File Prior to Visit: citalopram hydrobromide (CELEXA) 10 mg tablet Take 1 tablet by mouth once daily. Buprenorphine-nalOXone (SUBOXONE) 8-2 mg film Dissolve under the tongue once daily. busPIRone (BUSPAR) 10 mg tablet Take 1 tablet by mouth three times daily. levonorgestrel (MIRENA) 20 mcg/24 hr (5 years) IUD 1 Each by INTRAUTERINE route as directed. No current facility-administered medications on file prior to visit. Social History Social History Marital status: Single Spouse name: Years of education: 11 Number of children: Occupational History Occupation Employer Comment unemployed Social History Main Topics Smoking status: Current Every Day Smoker Packs/day: 0.50 Years: 4.00 Types: Cigarettes Smokeless tobacco: Never Used Alcohol use: No Drug use: Yes Comment: heroin abuse in past Sexual activity: Not Currently Partners with: Male control/protection: IUD Review of Symptoms REVIEW OF SYSTEMS GENERAL: No weight loss, malaise or fevers RESPIRATORY: Negative for cough, hemoptysis, wheezing, COPD, dyspnea or shortness of breath CARDIOVASCULAR: Negative for chest pain, leg swelling, hypertension, CHF or palpitations GI: No nausea, vomiting, or diarrhea SKIN: Negative for lesions, rash, and itching EXAM: BP 100/74 Pulse 84 Resp 16 Wt 56.2 kg (124 lb) BMI 23.05 kg/m? General Appearance: Well appearing, alert, in no acute distress, well-hydrated, well nourished.. Skin: Skin color, texture, turgor normal, no suspicious rashes or lesions. Lungs: Lungs clear to auscultation. No wheezing, rhonchi, rales. Heart: RRR without murmur, gallop, or rubs. No ectopy. Health Maintenance List HPV VACCINE(2 - Female 3-dose series) due on 07/30/2017 INFLUENZA(1) due on 12/18/2017 PAP EVERY 3 YEARS (21-30 YEAR OLDS) due on 11/24/2018 DTAP,TDAP,TD(2 - Td) due on 01/29/2026 ONE PNEUMOVAX PRIOR TO AGE 65 Completed ASSESSMENT/PLAN: 1. Severe episode of recurrent major depressive disorder, without psychotic features (HCC) - ICD9: 296.33, ICD10: F33.2 (primary diagnosis) Continue citalopram as previously prescribed, well controlled. - CITALOPRAM 10 MG TABLET 2. Anxiety - ICD9: 300.00, ICD10: F41.9 Uncontrolled. Will add back buspar and recheck in 6-8 weeks. - BUSPIRONE 10 MG TABLET 3. Tobacco use - ICD9: 305.1, ICD10: Z72.0 - Cessation encouraged. - Physiologic and physical aspects of tobacco addiction as well as strategies for quitting were discussed. - Counseling was given focusing on the harmful effects of this addiction especially given the patient's medical condition(s) which will be worsened because of the chemicals in tobacco. - Prescription for nicoderm patches given - NICOTINE 14 MG/24 HR DAILY TRANSDERMAL PATCH - NICOTINE 7 MG/24 HR DAILY TRANSDERMAL PATCH Lu Philip MD CNOV Observed: 12/29/2017 Status: COMPLETED Source: [place] 4:20 PM [facility] REPOSITORY Office Visit (FAMPWS) ABI ALANIS ([id number]) 1995 F Date Time Provider Department 12/29/17 4:20 PM LU PHILIP) FAMPWS During your visit today, we recorded the following information about you: Pulse Respiration Blood pressure Weight 84/minute 16/minute 100/74 56.2 kg Lu Philip MD 12/30/2017 7:54 AM Signed Chief Complaint Patient presents with: Medication Follow-up: asking for refills on buspar and celexa - was just release from Skilled Nursing on 12/24 and was not released with meds HPI Abi Alanis is a 22 year old female who presents here today for Above Complaints.. Patient has not been seen since May due to relapse of IV heroin and methamphetamine use while on probation, so was in skilled nursing for 90 days. Discharged on 12/24 and is staying in [facility] for inpatient treatment. Was given Celexa while in skilled nursing, but not buspar because her pharmacy did not have record of it. States that her depression symptoms have been well controlled while on the celexa, but anxiety is uncontrolled. Complains of , palpitations, fidgeting, trouble concentration, agitation/irritability, racing thoughts. Has not had panic attacks. Denies suicidal thoughts. Patient Health Questionnaire (PHQ-9), Score: 2 ?- Individual responses: 8-7-6-2-0-0-0-0-0 Score interpretation: Severe Depression Question and Answer List: 1. Not at all (0) ?- Little interest or pleasure in doing things 2. Not at all (0) ?- Feeling down, depressed, or hopeless 3. Not at all (0) ?- Trouble falling or staying asleep, or sleeping too much 4. More than half the days (2) ?- Feeling tired or having little energy 5. Not at all (0) ?- Poor appetite or overeating 6. Not at all (0) ?- Feeling bad about yourself - or that you are a failure or have let yourself or your family down 7. Not at all (0) ?- Trouble concentrating on things, such as reading the newspaper or watching television 8. Not at all (0) ?- Moving or speaking so slowly that other people could have noticed. Or the opposite - being so fidgety or restless that you have been moving around a lot more than usual 9. Not at all (0) ?- Thoughts that you would be better off , or of hurting yourself in some way 10. Not difficult at all (0) ?- If you checked off any problems in the previous 9 questions, how difficult have these problems made it for you to do your work, take care of things at home, or get along with other people? Feeling nervous, anxious, or on edge 3 Nearly every day Not being able to stop or control worrying 1 Several days Worrying too much about different things 0 Not at all sure Trouble relaxing 0 Not at all sure Being so restless that it's hard to sit still 0 Not at all sure Being easily annoyed or irritable 2 Over half the days Feeling afraid as if something awful might happen 3 Nearly every day CLAUDE-7 Anxiety Score 9 If you checked off any problems, how difficult have these problems made it for you to do your work, take care of things at home, or get along with other people? Not difficult at all Is no longer on Suboxone. Going to see Dr. Calderon in the next couple weeks to get started on Vivitrol. Denies drug use since discharge. Discussed risks of continued use. Would like help with smoking cessation, at 1/2 pack per day currently. Would like to try patches. Past medical history, appointments, medications, allergies reviewed. Previous Medical History PAST MEDICAL HISTORY Diagnosis Date - Anxiety - Chlamydia 2013 - depression - Heroin abuse (HCC) IV history, last use was March of 2017, seeing Dr. Calderon for suboxone - Rh negative status during 07/05/2014 - Tobacco use Previous Surgical History PAST SURGICAL HISTORY Procedure Laterality Date - [facility] (MISSED AB 1ST TRIMESTER) 04/27/12 missed ab at 12 weeks. baby measuring 8 weeks Family History FAMILY HISTORY Problem Relation Age of Onset - Breast Cancer Mother 46 - other (depression) Mother - Breast Cancer Maternal Grandmother Patient Allergies ALLERGIES No Known Allergies Current Medications Current Outpatient Prescriptions on File Prior to Visit: citalopram hydrobromide (CELEXA) 10 mg tablet Take 1 tablet by mouth once daily. Buprenorphine-nalOXone (SUBOXONE) 8-2 mg film Dissolve under the tongue once daily. busPIRone (BUSPAR) 10 mg tablet Take 1 tablet by mouth three times daily. levonorgestrel (MIRENA) 20 mcg/24 hr (5 years) IUD 1 Each by INTRAUTERINE route as directed. No current facility-administered medications on file prior to visit. Social History Social History Marital status: Single Spouse name: Years of education: 11 Number of children: Occupational History Occupation Employer Comment unemployed Social History Main Topics Smoking status: Current Every Day Smoker Packs/day: 0.50 Years: 4.00 Types: Cigarettes Smokeless tobacco: Never Used Alcohol use: No Drug use: Yes Comment: heroin abuse in past Sexual activity: Not Currently Partners with: Male control/protection: IUD Review of Symptoms REVIEW OF SYSTEMS GENERAL: No weight loss, malaise or fevers RESPIRATORY: Negative for cough, hemoptysis, wheezing, COPD, dyspnea or shortness of breath CARDIOVASCULAR: Negative for chest pain, leg swelling, hypertension, CHF or palpitations GI: No nausea, vomiting, or diarrhea SKIN: Negative for lesions, rash, and itching EXAM: BP 100/74 Pulse 84 Resp 16 Wt 56.2 kg (124 lb) BMI 23.05 kg/m? General Appearance: Well appearing, alert, in no acute distress, well-hydrated, well nourished.. Skin: Skin color, texture, turgor normal, no suspicious rashes or lesions. Lungs: Lungs clear to auscultation. No wheezing, rhonchi, rales. Heart: RRR without murmur, gallop, or rubs. No ectopy. Health Maintenance List HPV VACCINE(2 - Female 3-dose series) due on 07/30/2017 INFLUENZA(1) due on 12/18/2017 PAP EVERY 3 YEARS (21-30 YEAR OLDS) due on 11/24/2018 DTAP,TDAP,TD(2 - Td) due on 01/29/2026 ONE PNEUMOVAX PRIOR TO AGE 65 Completed ASSESSMENT/PLAN: 1. Severe episode of recurrent major depressive disorder, without psychotic features (HCC) - ICD9: 296.33, ICD10: F33.2 (primary diagnosis) Continue citalopram as previously prescribed, well controlled. - CITALOPRAM 10 MG TABLET 2. Anxiety - ICD9: 300.00, ICD10: F41.9 Uncontrolled. Will add back buspar and recheck in 6-8 weeks. - BUSPIRONE 10 MG TABLET 3. Tobacco use - ICD9: 305.1, ICD10: Z72.0 - Cessation encouraged. - Physiologic and physical aspects of tobacco addiction as well as strategies for quitting were discussed. - Counseling was given focusing on the harmful effects of this addiction especially given the patient's medical condition(s) which will be worsened because of the chemicals in tobacco. - Prescription for nicoderm patches given - NICOTINE 14 MG/24 HR DAILY TRANSDERMAL PATCH - NICOTINE 7 MG/24 HR DAILY TRANSDERMAL PATCH Lu Philip MD Referring Provider: SELF [[id number]] Allergies As of Date: 12/29/2017 (No Known Allergies) Date Reviewed: 12/29/2017 Reviewed by: Rajiv Correa Ma - Fully Assessed Reason for Visit: Medication Follow-up [270] Cmt: asking for refills on buspar and celexa - was just release from Skilled Nursing on 12/24 and was not released with meds Reason For Visit History Recorded Primary Visit Diagnosis:Severe episode of recurrent major depressive disorder, without psychotic features (HCC) [F33.2] Other Visit Diagnoses:Anxiety [F41.9] Tobacco use [Z72.0] Order(s):citalopram hydrobromide (CELEXA) 10 mg tabletTake 1 tablet by mouth once daily.Disp: 30 tabletRfl: 3 busPIRone (BUSPAR) 10 mg tabletTake 1 tablet by mouth three times daily.Disp: 90 tabletRfl: 3 nicotine (NICODERM) 14 mg/24 hrApply 1 Patch as directed every 24 hours. No smoking with patch.Disp: 30 PatchRfl: 0 nicotine (NICODERM) 7 mg/24 hrApply 1 Patch as directed every 24 hours.Disp: 30 PatchRfl: 0 Prescriptions as of 12/29/2017 Sig: LEVONORGESTREL 20 MCG/24 HR (* 1 Each by INTRAUTERINE route * CITALOPRAM 10 MG TABLET Take 1 tablet by mouth once d* BUSPIRONE 10 MG TABLET Take 1 tablet by mouth three * NICOTINE 14 MG/24 HR DAILY TR* Apply 1 Patch as directed jeremy* NICOTINE 7 MG/24 HR DAILY TRA* Apply 1 Patch as directed jeremy* Problem List As Of Date 12/29/2017 Noted Resolved Twin gestation, dichorionic diamniotic [O30.049]INVALID FOR*12/10/2014 More... Tobacco use in [O99.330] INVALID FOR*12/10/2014 Not immune to rubella [Z78.9] INVALID FOR*12/10/2014 Rh negative status during [O09.899, Z*INVALID FOR*12/10/2014 IUGR (intrauterine growth restriction) [ZTW8065]INVALID FOR*12/10/2014 More... complicated by Suboxone maintenance, *INVALID FOR*06/26/2016 More... Rh negative state in antepartum period [O09.899]INVALID FOR*06/26/2016 More... Tobacco use in [O99.330] INVALID FOR*06/26/2016 More... History of depression [Z86.59] INVALID FOR*06/26/2016 More... UTI (urinary tract infection) in , ant*INVALID FOR*06/26/2016 More... Heroin abuse [F11.10] 06/26/2016 Anxiety [F41.9] Prescriptions ordered this encounter Disp Refills Start End CITALOPRAM 10 MG TABLET 30 t* 3 12/29/2017 Route: ORAL Sig: Take 1 tablet by mouth once daily. BUSPIRONE 10 MG TABLET 90 t* 3 12/29/2017 Route: ORAL Sig: Take 1 tablet by mouth three times daily. NICOTINE 14 MG/24 HR DAILY TRANSDERM* 30 P* 0 12/29/2017 Route: TRANSDERM. Sig: Apply 1 Patch as directed every 24 hours. No smoking with patch. NICOTINE 7 MG/24 HR DAILY TRANSDERMA* 30 P* 0 12/29/2017 Route: TRANSDERM. Sig: Apply 1 Patch as directed every 24 hours. Medications Discontinued During This Encounter citalopram hydrobromide (CELEXA) 10 * 30 t* 0 07/15/2017 12/29/2017 Route: ORAL Sig: Take 1 tablet by mouth once daily. Disc: Reason for discontinue is not on file. busPIRone (BUSPAR) 10 mg tablet 90 t* 0 06/04/2017 12/29/2017 Route: ORAL Sig: Take 1 tablet by mouth three times daily. Disc: Reason for discontinue is not on file. Buprenorphine-nalOXone (SUBOXONE) 8-* 12/29/2017 Class: Historical Med Route: SUBLINGUAL Sig: Dissolve under the tongue once daily. Disc: Reason for discontinue is not on file. Disposition: Return in about 6 weeks (around 02/09/2018). Follow-up and Disposition History Recorded Questionnaire: CLAUDE-7 ANXIETY SCALE Feeling nervous, anxious, or on edge -> 3 Nearly every day Not being able to stop or control worrying -> 1 Several days Worrying too much about different things -> 0 Not at all sure Trouble relaxing -> 0 Not at all sure Being so restless that it's hard to sit still -> 0 Not at all sure Being easily annoyed or irritable -> 2 Over half the days Feeling afraid as if something awful might happen -> 3 Nearly every day CLAUDE-7 Anxiety Score -> 9 If you checked off any problems, how difficult have these problems made it for you to do your work, take care of things at home, or get along with other people? -> Not difficult at all Encounter Status:Closed by LU PHILIP MD on 12/30/17 CNPN Observed: 06/08/2017 Status: COMPLETED Source: [place] 12:00 AM [facility] REPOSITORY Telephone ([employer]) ABI ALANIS ([id number]) 1995 F Date Time Provider Department 06/08/17 LU PHILIP) [facility] During your visit today, we recorded the following information about you: Rachana Mauricio Ma 06/08/2017 6:32 PM Signed ----- Message from Lu España) Cedrick sent at 06/08/2017 3:48 PM EST ----- Positive for suboxone. No other illicit substances present. Rachana Mauricio Ma 06/08/2017 6:53 PM Signed Unable to reach patient. Left VM to return call to office. Please read below and advise. Rachana Correa Ma 06/11/2017 9:49 AM Signed Letter mailed advising of results. Emily Molina RN 01/06/2018 10:22 AM Signed Patient notified of results and provider's instructions. Patient verbalizes understanding. Emily Molina RN Allergies As of Date: 06/08/2017 (No Known Allergies) Date Reviewed: 06/04/2017 Reviewed by: Lu España) Cedrick - Fully Assessed Reason for Visit: Results [95] Prescriptions as of 06/08/2017 Sig: X BUPRENORPHINE 8 MG-NALOXONE 2* Dissolve under the tongue onc* X CITALOPRAM 10 MG TABLET Take 1 tablet by mouth once d* X BUSPIRONE 10 MG TABLET Take 1 tablet by mouth three * LEVONORGESTREL 20 MCG/24 HR (* 1 Each by INTRAUTERINE route * Problem List As Of Date 06/08/2017 Noted Resolved Twin gestation, dichorionic diamniotic [O30.049]INVALID FOR*12/10/2014 More... Tobacco use in [O99.330] INVALID FOR*12/10/2014 Not immune to rubella [Z78.9] INVALID FOR*12/10/2014 Rh negative status during [O09.899, Z*INVALID FOR*12/10/2014 IUGR (intrauterine growth restriction) [XVD6355]INVALID FOR*12/10/2014 More... complicated by Suboxone maintenance, *INVALID FOR*06/26/2016 More... Rh negative state in antepartum period [O09.899]INVALID FOR*06/26/2016 More... Tobacco use in [O99.330] INVALID FOR*06/26/2016 More... History of depression [Z86.59] INVALID FOR*06/26/2016 More... UTI (urinary tract infection) in , ant*INVALID FOR*06/26/2016 More... Heroin abuse [F11.10] 06/26/2016 Anxiety [F41.9] Letter Text Lou [address] [place], [place] [address] Abi Alanis [address] [facility] [address] 06/11/2017 Dear Ms. Alanis, It was a pleasure to see you at your recent Clinic visit. I have received the results of your recent tests. Positive for suboxone. No other illicit substances present. Please do not hesitate to contact me with any questions. Sincerely, Lu Philip MD electronically signed to expedite mailing Encounter Status:Closed by CT SHARAN RAJIV on 06/11/17 QUANT PAIN PANEL, Collected: 06/04/2017 Status: F Source: [place] 11:18 AM [facility] REPOSITORY TYPE CODE TESTS RESULT OUT OF REFERENCE UNITS RANGE LAB UQCANN <16 ng/mL <16 Cannabinoid, Urine Result Comment: Tetrahydrocannabinol carboxylic acid (THCA) is a metabolite of mocwz-4-mdojrpaiawexzdqahazu which is the main active component of marijuana. LAB UQBNZL <24 ng/mL Benzoylecognine, Ur <24 Result Comment: Benzoylecognine is a metabolite of cocaine. LAB UQACMR <5 ng/mL 6-Acetylmorphine, Ur <5 Result Comment: 6-MARIA ELENA (6-monoacetylmorphine, also known as 6-acetylmorphine) is a unique metabolite of heroin. Presence of 6-MARIA ELENA indicates use of heroin. 6-MARIA ELENA is further metabolized to morphine and absence of 6-MARIA ELENA does not rule out the use of heroin. LAB UQAMPH <5 ng/mL Amphetamine, Urine <5 LAB UQMAMP <8 ng/mL Methamphetamine, Ur <8 LAB UQBUPR <20 ng/mL Buprenorphine, Ur High 34 Result Comment: Presence of buprenorphine indicates use of buprenorphine containing drugs (e.g. Suboxone or Buprenex). Buprenorphine is metabolized to norbuprenorphine. LAB UQNBUP <20 ng/mL Norbuprenorphine, Ur High 61 Result Comment: Norbuprenorphine is the primary active metabolite of buprenorphine. Presence of norbuprenorphine indicates use of buprenorphine containing drugs (e.g. Suboxone, Buprenex). LAB UQMTHD <16 ng/mL Methadone, Urine <16 LAB UQEDDP <6 ng/mL EDDP, Urine <6 Result Comment: EDDP is a metabolite of methadone. LAB UQTRAM <25 ng/mL Tramadol, Urine <25 LAB UQDTRM <20 ng/mL Desmethyltramadol <20 ,Ur Result Comment: Desmethyltramadol is a metabolite of tramadol. LAB UQFNTL <6 ng/mL Fentanyl, Urine <6 LAB UQNFTL <6 ng/mL Norfentanyl, Urine <6 Result Comment: Norfentanyl is a metabolite of fentanyl. LAB UQCODE <11 ng/mL Codeine, Urine <11 LAB UQMORP <10 ng/mL Morphine, Urine <10 Result Comment: Morphine is a metabolite of codeine and heroin. LAB UQDCDN <5 ng/mL Dihydrocodeine, Ur <5 LAB UQHCOD <8 ng/mL Hydrocodone, Urine <8 Result Comment: Hydrocodone is a metabolite of dihydrocodeine. LAB UQOXYC <5 ng/mL Oxycodone, Urine <5 LAB UQHMOR <5 ng/mL Hydromorphone, Ur <5 Result Comment: Hydromorphone is a metabolite of hydrocodone. LAB UQOXYM <5 ng/mL Oxymorphone, Urine <5 Result Comment: Oxymorphone is a metabolite of oxycodone. LAB UQCREA >19 mg/dL Creatinine, >50 Urine LAB UQPH 4-10 pH, Urine 4-10 LAB UQSPGR 1.005-1.020 Specific [place],Ur 1.005-1.020 LAB UQOXID Negative Oxidants, Negative Urine LAB UQSPQ Specimen Specimen Quality quality results within acceptable limits. LAB UQNOTE Note This test is for Medical use only. Result Comment: This test was developed and its performance characteristics determined by [facility]'s [facility] [place] ([facility]). It has not been cleared or approved by the FDA. -[facility] is regulated under CLIA as qualified to perform high-complexity testing. This test is used for clinical purposes. It should not be regarded as investigational or for research. Performed By: #### UQNTPP #### [facility] [address] [place], [place] [address] PROGRESS Observed: 06/04/2017 Status: COMPLETED Source: [place] 10:15 AM [facility] REPOSITORY HNO ID: [id number] Author: Lu España) Cedrick Service: (none) Author Type: Physician Type: Progress Notes Filed: 06/04/2017 12:53 PM Note Text: Chief Complaint Patient presents with: Establish Care: physical HPI Aib Alanis is a 22 year old female who presents here today for establish care visit. Has not had PCP in many years, just was seeing Dr. Calderón. Patient is in family dependency court for history of IV heroin use. Has been trying to get her kids back. Has custody of son, but has twin daughters age 2 who are currently in a foster home. Patient has history of depression and was treated with Celexa and buspar in the past, ran out of rx back in March. Since that time, has noticed worsening symptoms as listed below. Asked about suicidal thoughts and patient states she has come up with a plan that if she were to kill herself she would do it with a heroin overdose. Has treatment team which consists of counselor, case consultant, head of family court, cashier through family court. Sees counselor every week and has discussed these thoughts with them multiple times as well as her case consultant. Will be starting with Catrachita Sumner on a weekly basis starting next week, intake was 2 days ago. Has emergency contacts through case consultant and counselor if she starts to have thoughts of self harm. Denies thoughts today and feels safe going home. Patient Health Questionnaire (PHQ-9), Score: 22 ? ?- Individual responses: 3-4-6-3-1-3-3-3-3 ? Question and Answer List: ? 1. Nearly every day (3) ?- Little interest or pleasure in doing things ? 2. Nearly every day (3) ?- Feeling down, depressed, or hopeless ? 3. Not at all (0) ?- Trouble falling or staying asleep, or sleeping too much ? 4. Nearly every day (3) ?- Feeling tired or having little energy ? 5. Several days (1) ?- Poor appetite or overeating ? 6. Nearly every day (3) ?- Feeling bad about yourself - or that you are a failure or have let yourself or your family down ? 7. Nearly every day (3) ?- Trouble concentrating on things, such as reading the newspaper or watching television ? 8. Nearly every day (3) ?- Moving or speaking so slowly that other people could have noticed. Or the opposite - being so fidgety or restless that you have been moving around a lot more than usual ? 9. Nearly every day (3) ?- Thoughts that you would be better off , or of hurting yourself in some way ? 10. Not difficult at all (0) ?- If you checked off any problems in the previous 9 questions, how difficult have these problems made it for you to do your work, take care of things at home, or get along with other people? Has history of anxiety as well and her symptoms have not been as bad as depression. Admits to mild case of excessive worrying, racing thoughts, trouble concentration. Denies panic symptoms, agitation, irritability, insomnia. Previously well controlled with buspar. Requesting refill. Up to date on cancer screening. Due today for pneumovax and gardasil immunization. Has not had recent screening blood work and has not had HIV or hepatitis testing after last IV drug use. Past medical history, appointments, medications, allergies reviewed. Previous Medical History PAST MEDICAL HISTORY Diagnosis Date - Chlamydia 2013 - depression - Heroin abuse - Rh negative status during 07/05/2014 Previous Surgical History PAST SURGICAL HISTORY Procedure Laterality Date - DANCT (MISSED AB 1ST TRIMESTER) 04/27/12 missed ab at 12 weeks. baby measuring 8 weeks Family History FAMILY HISTORY Problem Relation Age of Onset - depression [OTHER] Mother Patient Allergies ALLERGIES No Known Allergies Current Medications Current Outpatient Prescriptions on File Prior to Visit: Naproxen Sodium 550 mg tablet Take 1 tablet by mouth twice daily with meals. For pain. levonorgestrel (MIRENA) 20 mcg/24 hr (5 years) IUD 1 Each by INTRAUTERINE route as directed. citalopram hydrobromide (CELEXA) 10 mg tablet Take 1 tablet by mouth once daily. busPIRone (BUSPAR) 10 mg tablet Take 1 tablet by mouth three times daily. No current facility-administered medications on file prior to visit. Social History Social History Marital status: Single Spouse name: Years of education: 11 Number of children: Occupational History Occupation Employer Comment unemployed Social History Main Topics Smoking status: Current Every Day Smoker Packs/day: 0.50 Years: 4.00 Smokeless status: Never Used Alcohol use: No Drug use: Yes Comment: heroin abuse in past Sexual activity: Yes Partners with: Male control/protection: IUD Review of Symptoms REVIEW OF SYSTEMS GENERAL: No weight loss, malaise or fevers RESPIRATORY: Negative for cough, hemoptysis, wheezing, COPD, dyspnea or shortness of breath CARDIOVASCULAR: Negative for chest pain, leg swelling, hypertension, CHF or palpitations GI: positive for vomiting this morning x1 without blood SKIN: Negative for lesions, rash, and itching EXAM: BP 94/66 Pulse 80 Resp 14 Wt 49.4 kg (109 lb) BMI 20.26 kg/m2 General Appearance: Well appearing, alert, in no acute distress, well-hydrated, well nourished.. Skin: Skin color, texture, turgor normal, no suspicious rashes or lesions. Head: Normocephalic, no masses, lesions, tenderness or abnormalities. Eyes: Anicteric sclera. Pupils are equally round and reactive to light. Extraocular movements are intact. . Ears: External ears normal, canals clear. Nose/Sinuses: Nares normal, septum midline, mucosa normal, no drainage or sinus tenderness. Neck: Supple, no adenopathy; thyroid symmetric, normal size, no bruits. Lungs: Lungs clear to auscultation. No wheezing, rhonchi, rales. Heart: RRR without murmur, gallop, or rubs. No ectopy. Abdomen: Normal abdominal exam, Abdomen soft, non-tender. Bowel sounds normal. No masses, organomegaly. Extremities: No deformities, edema, skin discoloration, clubbing or cyanosis. Good capillary refill. . Health Maintenance List HPV VACCINE(1 of 3 - Female 3 Dose Series) due on 2004 ONE PNEUMOVAX PRIOR TO AGE 65 due on 2012 GC (GONORRHEA) SCREENING (18-24) due on 11/24/2016 CHLAMYDIA SCREENING (18-24) due on 11/24/2016 INFLUENZA(1) due on 12/18/2016 PAP EVERY 3 YEARS (21-30 YEAR OLDS) due on 11/24/2018 TETANUS due on 01/29/2026 ASSESSMENT/PLAN: 1. Severe episode of recurrent major depressive disorder, without psychotic features (HCC) - ICD9: 296.33, ICD10: F33.2 (primary diagnosis) Restart citalopram, will recheck in 4 weeks. Follow up with counseling weekly. Contracted for safety prior to leaving office. - CITALOPRAM 10 MG TABLET - CBC - COMP METABOLIC PANEL - LIPID PANEL BASIC - TSH BLD 2. Anxiety - ICD9: 300.00, ICD10: F41.9 Restart buspar. - BUSPIRONE 10 MG TABLET - CBC - COMP METABOLIC PANEL - LIPID PANEL BASIC 3. IV drug user - ICD9: 305.90, ICD10: F19.90 Last use more than a year ago. Will obtain STD screening. Follow up with [facility]rach[facility] Sumner and Dr. Calderon. - HIV 1,2 COMBO (AG/AB) - HEP REMOTE PANEL BL 4. History of heroin abuse - ICD9: 305.53, ICD10: Z87.898 Continue suboxone. Sober since March. - TOX SCREEN ROUT UR - PAIN PANEL, UR QUANT 5. Tobacco use - ICD9: 305.1, ICD10: Z72.0 - Cessation encouraged. - Physiologic and physical aspects of tobacco addiction as well as strategies for quitting were discussed. - Counseling was given focusing on the harmful effects of this addiction especially given the patient's medical condition(s) which will be worsened because of the chemicals in tobacco. - Will work on cessation after cleared by Dr. Calderon. 6. Need for vaccination - ICD9: V05.9, ICD10: Z23 - PNEUMOCOCCAL IMMUNIZATION PPSV 23 - HUMAN PAPILLOMAVIRUS 4-VALENT HPV 3 DOSE IM Lu Philip MD ALLERGIES ALLERGIES DATE TYPE / CODE NAME / CODE REACTION SEVERITY SOURCE 03/30/2018 Drug No Known Unknown [facility] Allergy/416 Allergies/[id number] Hospital [id number](SNOM 0388(RXNORM) Repository ED CT) Drug NO KNOWN [facility] Class/52568 ALLERGIES [facility] 1003(SNOMED Repository CT) ENCOUNTERS ENCOUNTERS ADMIT/DISCHARGE ACCOUNT ADMITTING ENCOUNTER LOCATION SOURCE NUMBER CLASS 03/30/2018/03/31/20 [id number] Emergency [address] ing:ED Repository 03/22/2018/03/22/20 [id number] Emergency [address] ing:ED Repository 02/03/2018/02/05/20 [id number] Ambulatory [address] Repository 12/29/2017/12/30/19 [id number] Ambulatory [address] Repository 12/29/2017/12/31/19 [id number] Ambulatory [address] Repository 06/04/2017/06/04/[id number] Repository PAYERS PAYERS ENCOUNTER GUARANTOR PAYER SUBSCRIBER SOURCE 03/30/2018 ABI Calvo Primary ABI ALANIS330 Insurance:KRISTEN CASTAÑEDACamryn: [address]: [facility] [id number]: 330 [id number] [phone] () Date:[id number] [address] [place] [address]01[address]LE: 03/30/2018 Secondary NOT GIVENUNK [place] Insurance:SELF PAY [facility] Number: Effective Repository Date:2018-03-30 03/22/2018 ABI Calvo Primary ABI ALANIS330 Insurance:KRISTEN ALANISVIVIANE: [facility] [id number]: Repository [id number]: 330 [id number] [phone] () Date:[id number] [address] [place] [id number]: 03/22/2018 Secondary NOT GIVENUNK [place] Insurance:SELF PAY [facility] Number: Effective Repository Date:2018-03-22
== END 2018-03-31 00:38 | disposition home or self-care (01) ==
PROVIDERS: Emergency Provider Emergency Medicine; Family Provider Family Medicine; PCP Family Medicine
DX: T40.4X1A Poisoning by other synthetic narcotics, accidental (unintentional), initial encounter (principal); Y92.9 Unspecified place or not applicable
CPT/HCPCS: 99285; J7030

== ENCOUNTER 2019-02-23 02:38 | Emergency (ER) | payer MEDICAID, SELFPAY ==
[2019-02-23] VITALS (7 sets, daily range): BP systolic 88–147; BP diastolic 62–88; PULSE 77–120; RESP 4–32; TEMP 35.9; O2SAT 72–100; BMI 20.6
[2019-02-23] MEDS: Naloxone 2 MG/2 ML Syringe NS (02:39)
[2019-02-23] MEDS: Naloxone 2 MG/2 ML Syringe IV ×2 (02:41→02:42)
--- NOTE | 2019-02-23 02:49 | ED.VIS.GEN ---
History of Present Illness Chief Complaint: Overdose Informant: Patient, Friend Narrative: stated she is IV fentanyl this evening. She is a heroin addict. She did note was fentanyl patient was given Narcan nasal by her friends mother at home. She brought her in by car. Patient be helped from the vehicle. She has a history of IV heroin use per patient. She has overdosed one time in the past per patient requiring ER visit. She was not trying to overdose on purpose. Current severity is severe. Past Medical History - Allergies and Home Meds Allergies/Adverse Reactions: Allergies No Known Allergies Allergy (Verified 02/23/19 02:44) Primary Care Physician: Butch Philip MD [NON-STAFF] - [facility] [STAFF PHYSICIAN] - Prior records reviewed: Yes Past Medical History: - - Heroin abuse Surgical History: - - Reviewed Smoking Status: Current every day smoker Alcohol: None Drugs: Heroin Review of Systems General: Denies: Chills, Fever, Sweats Eyes: Denies: Visual changes - bilaterally, Diplopia ENT: Denies: Rhinorrhea, Sore throat Cardiovascular: Denies: Chest pain, Palpitations Respiratory: Denies: Dyspnea, Cough, Dyspnea on exertion Gastrointestinal: Denies: Abdominal pain, Nausea, Vomiting, Diarrhea, Melena, Hematochezia Genitourinary: Denies: Dysuria, Hematuria, Frequency Musculoskeletal: Denies: Back pain, Extremity Pain Skin: Denies: Rash, Wounds Neurological: Denies: Headache, Weakness, Numbness Physical Exam Vital Signs/Narrative: Vital Signs Temp Pulse Resp BP Pulse Ox 02/23/19 02:45 120 H 17 131/88 H 100 02/23/19 02:42 92 02/23/19 02:39 96.6 F L 77 4 L 147/73 H 72 General: Well nourished, Well developed, - - Patient has overdosed on heroin and is in and out of consciousness. Negative for: No Acute Distress Head: Normocephalic, Atraumatic Eyes: EOMI, - - Pupils pinpoint. Negative for: Perrl ENT: Moist mucous membranes, No rhinorrhea Neck: Supple, Nontender Cardiovascular: Regular rhythm, No murmurs, Tachycardia. Negative for: Regular rate Respiratory: No distress, CTA bilaterally, Chest nontender Abdomen: Soft, Nontender, Nondistended, Normal bowel sounds Back: Nontender, Normal Inspection Extremities: Nontender, No edema Skin: Normal color, No rash Neurological: Normal Sensation, - - Patient weak and in and out of consciousness secondary to heroin overdose. Negative for: Alert, Oriented x3, Cranial nerves II-XII grossly intact, Normal Strength Psychological: Normal affect, Normal Mood Diagnostic/Tx/Re-eval - Medical Decision Making Patient placed on the cardiac catheterization technologist IV established and placed on nonrebreather oxygen. Patient was given 3 doses of Narcan which aroused her back to normal. She stated she accidentally overdosed and suspects it was fentanyl. Patient given IV fluids and monitored.. She rested comfortably. Watch for 2 and half hours. Will be discharged. Instructed not to use heroin. We will follow-up with detox 180 - Critical Care Time Critical care time (excluding procedures): 30-74 minutes ED Disposition - Plan for ED Patient: Disposition: Home or Assisted Living Diagnosis: Accidental fentanyl overdose Instructions: OVERDOSE, Accidental (Adult), OVERDOSE, Opiate Referrals: Butch Philip MD [NON-STAFF] - [facility] [STAFF PHYSICIAN] -
== END 2019-02-23 05:37 | disposition home or self-care (01) ==
PROVIDERS: Emergency Provider Emergency Medicine
DX: T40.4X1A Poisoning by other synthetic narcotics, accidental (unintentional), initial encounter (principal); Y92.9 Unspecified place or not applicable; F17.200 Nicotine dependence, unspecified, uncomplicated
CPT/HCPCS: 96374; 99283; J7030; A4216